=== PATIENT | male | born 1955 | race Caucasian/White ===

== ENCOUNTER 2018-10-19 11:00 | Day surgery (SDC) | payer BC ==
[~2018-10-19] VITALS: Ht 162.6 cm; Wt 67.7 kg
[~2018-10-19 11:00] MED LIST: PROPOFOL 200 MG INJ ONE
[2018-10-19] MEDS ORDERED: ATENOLOL (12:11)
[2018-10-19] MEDS ORDERED: LIPITOR (12:11)
[2018-10-19] MEDS ORDERED: DIOVAN (12:11)
[2018-10-19] MEDS ORDERED: ATORVASTATIN (12:11)
[2018-10-19 12:15] VITALS: Ht 162.6 cm; Wt 67.7 kg
[2018-10-19 13:43] VITALS: BP 166/87; PULSE 81; RESP 18
--- NOTE | 2018-10-19 13:58 | PREAC ---
Date/Time of Note Date/Time of Note DATE: 10/19/18 TIME: 13:57 Anesthesia Eval and Record Evaluation Time Pre-Procedure Interview DATE: 10/19/18 TIME: 13:57 Age 62 Sex male NPO: 8 hrs Preoperative diagnosis screening Planned procedure colonoscopy Past Medical History Past Medical History: Includes Cardio: HTN, Dyslipidemia, CAD, PTCA/Stent Surgery & Anesthesia Issues No known issue Meds Anticoagulation: No Beta Oliverio within 24 hr: Yes Reason Beta Oliverio not given: Bradycarida, Hypotension Reported Medications [Atorvastatin] No Conflict Check 10/19/18 [Atenolol] No Conflict Check 10/19/18 [Lipitor] No Conflict Check 10/19/18 [Diovan] No Conflict Check 10/19/18 Meds reviewed: Yes Allergies Coded Allergies: amoxicillin (Verified Allergy, Intermediate, RASH, 10/19/18) ampicillin (Verified Allergy, Intermediate, RASH, 10/19/18) Allergies Reviewed: Yes Labs/Studies Labs Reviewed: Reviewed by anesthesiologist test: N/A Pre-procedure Exam Last vitals Vital Signs Date Temp Pulse Resp B/P (MAP) Pulse Ox O2 O2 Flow FiO2 Time Delivery Rate 10/19/18 97.9 81 18 166/87 98 Room Air 13:43 (113) Airway: Adequate mouth opening, Adequate thyromental dist Mallampati: Mallampati II Teeth: Normal Lung: Normal Heart: Normal ASA Physical Status ASA physical status: 3 Emergency: None Planned Anesthetic General/MAC: Mask Planned Pain Management Parenteral pain med Pre-operative Attestations Prior to commencing anesthesia and surgery, the patient was re-evaluated, there was verification of: *The patient's identity *The results of appropriate recent lab work and preoperative vital signs *The above evaluation not changing prior to induction *Anesthetic plan, risk benefits, alternative and complications discussed with patient/family; questions answered; patient/family understands, accepts and wishes to proceed. IVANNA PATEL MD Oct 19, 2018 13:58
[2018-10-19] MEDS ORDERED: hydrALAzine 20 MG INJ IV PRN (14:00)
[2018-10-19] MEDS ORDERED: LABETALOL HCL 20MG INJ IV PRN (14:00)
[2018-10-19] MEDS ORDERED: LIDOCAINE 2% (SDV) 5 ML INJ ONE (14:00)
[2018-10-19] MEDS ORDERED: PROPOFOL 40 ML ONE (14:00)
[2018-10-19] MEDS ORDERED: ONDANSETRON 4 MG INJ IV PRN (14:00)
--- NOTE | 2018-10-19 14:23 | PAC ---
Date/Time of Note Date/Time of Note DATE: 10/19/18 TIME: 14:21 Post-Anesthesia Notes Post-Anesthesia Note Last documented vital signs Vital Signs Date Temp Pulse Resp B/P (MAP) Pulse Ox O2 O2 Flow FiO2 Time Delivery Rate 10/19/18 97.9 81 18 166/87 98 Room Air 13:43 (113) Activity: WNL Respiratory function: WNL Cardiovascular function: WNL Mental status: Baseline Pain reasonably controlled: Yes Hydration appropriate: Yes Nausea/Vomiting absent: Yes Comments BP: 113/62 HR: 70 RR: 15 T: 98 SaO2: 99% IVANNA PATEL MD Oct 19, 2018 14:23
[2018-10-19 14:46] VITALS: BP 139/82; RESP 20
== END 2018-10-19 15:34 | disposition home or self-care (01) ==
LOC: GIL 11:00 → EDSEX 11:00 → GIL 15:34
PROVIDERS: ATTEND Internal Medicine Gastroenterology
DX: Z12.11 Encounter for screening for malignant neoplasm of colon (principal); K64.8 Other hemorrhoids; I10 Essential (primary) hypertension; I25.10 Atherosclerotic heart disease of native coronary artery without angina pectoris; E78.5 Hyperlipidemia, unspecified
CPT/HCPCS: 45378; Z7610